=== PATIENT | female | born 1965 | race Asian ===

== ENCOUNTER → 2016-09-26 | Outpatient (CLI) | payer MEDICAID | LOC: FIMAGING 07:55 | DX: Z12.31 Encounter for screening mammogram for malignant neoplasm of breast (principal) | CPT/HCPCS: G0202 ==

== ENCOUNTER → 2018-10-12 | Outpatient (CLI) | payer MEDICAID | LOC: FIMAGING 08:38 | DX: Z12.31 Encounter for screening mammogram for malignant neoplasm of breast (principal) ==